=== PATIENT | male | born 2005 | race Caucasian/White ===

== ENCOUNTER 2024-02-27 19:02 | Emergency (ER) | payer OTHER, SELFPAY ==
[2024-02-27 19:15] VITALS: BP 149/80; PULSE 60; RESP 18; TEMP 36.1; O2SAT 100; BMI 21.0
[2024-02-27] MEDS: 0.9 % SODIUM CHLORIDE 1000 ml 1,000 ML IV (19:51)
[2024-02-27] MEDS: ONDANSETRON 2 MG/ML inj 4 MG IVP (19:52)
--- NOTE | 2024-02-27 20:00 | ED_ITS ---
HPI - General Adult General Date Seen: 02/27/24 Chief complaint: Fever Stated complaint: Fever, headache, nausea Time Seen by Provider: 02/27/24 19:57 Source: patient Mode of arrival: ambulatory Limitations: no limitations History of Present Illness HPI narrative: Patient is a 18-year-old here with his girlfriend for evaluation of headache, chills and vomiting. He says he works nights, he had gotten up around noon and noted a headache which he says was initially severe although it has improved since then. He took some Tylenol, but says he then started vomiting and has vomited several times. He developed shaking chills and broke out in a sweat according to his girlfriend. He thought he probably had a fever although he did not check his temperature at home. He denies sore throat, rash, abdominal pain or cough. No ill contacts. He has not had diarrhea. He denies underlying medical history, takes no medications. He does smoke pot, denies significant alcohol use and denies any other substance use. Related Data Home Medications ?Medication ?Instructions ?Recorded ?Confirmed No Known Home Medications 02/27/24 02/27/24 Allergies Allergy/AdvReac Type Severity Reaction Status Date / Time No Known Drug Allergies Allergy Verified 02/27/24 19:18 Review of Systems Status of ROS: Reports: 10 or more systems reviewed and unremarkable except as noted in History and below [facility] Social History Smoking Status: Never smoker Do you use any of these nicotine containing products: Other Second hand tobacco smoke exposure: No How often do you have a drink containing alcohol: monthly or less How many standard drinks containing alcohol do you have on a typical day: 1 or 2 How often do you have six or more drinks on one occasion: Never AUDIT-C Alcohol total score: 1 Non-prescribed substance use: marijuana (any form) service: No Exam Narrative: Exam Narrative: Vital signs as noted above. In general, an alert, well-appearing patient. Head: Normocephalic, atraumatic. Eyes: Pupils are equal reactive. Extraocular movements are full. Conjunctivae are normal. ENT: Mucous membranes are moist. Throat is normal. TMs occluded by cerumen bilaterally. Neck: Supple, no meningeal signs. Small anterior cervical lymph nodes are noted. Heart: Regular rate and rhythm. No murmur or rub. Lungs: Clear bilaterally. No increased work of breathing, crackles or wheezes. Abdomen: Soft and nontender. No organomegaly. Extremities: Well perfused. No edema. No calf tenderness. Pulses intact. Neurologic: Patient is alert and oriented to person and place. Speech is fluent. Face is symmetric. Moves all extremities equally. Affect: Normal. Skin: Warm and dry. Well perfused. Const: Vital Signs, click to edit/add: Vital Signs - 24 hr 02/27/24 19:15 02/27/24 20:51 02/27/24 21:59 Temperature 97.0 F L 98.4 F 98.2 F Pulse Rate [Pulse Oximeter] 60 66 62 Respiratory Rate 18 16 18 Blood Pressure [Ri t Upper Arm] 149/80 H 143/84 H 128/68 Pulse Oximetry 100 99 Oxygen Delivery Me thod Room Air Room Air Documenting provider has reviewed patient's vital signs: yes Course Course ED Course: Nurse reported that he was shaking and chilled on his arrival although when I spoke with him he looked more comfortable. He had IV fluids running at that time. He says the headache is feeling better. He has had some Zofran and nausea is improved as well. Viral swab and blood work pending. Overall, symptoms seem most likely likely to be viral in nature, would doubt intracranial infection such as meningitis or encephalitis given absence of fever or meningeal signs, benign appearance, and improvement of headache, likewise doubt intracranial hemorrhage. Plan would be to see how labs look, see how he is feeling over time. If he seems to be deteriorating or if labs are concerning, would consider further evaluation particularly viral testing is negative. Labs are notable for a white blood cell count which is somewhat elevated at 16,000 thousand, CRP is less than 0.5 in metabolic panel is normal. Viral swab is negative. Am signing this patient out to Dr. Meadows, will complete fluids, reassess clinically. If he continues to feel well, I think it is reasonable to send him home with symptomatic control, Zofran. If his presentation is becoming more concerning, additional workup may be indicated. Vital Signs Vital signs: Initial Vital Signs Temperature 97.0 F L 02/27/24 19:15 Temperature Source Oral 02/27/24 19:15 Pulse Rate 60 02/27/24 19:15 Pulse Rhythm Regular 02/27/24 19:15 Respiratory Rate 18 02/27/24 19:15 Blood Pressure 149/80 H 02/27/24 19:15 Blood Pressure Mean 103 02/27/24 19:15 Blood Pressure Position Sitting 02/27/24 19:15 Pulse Oximetry 100 02/27/24 19:15 Oxygen Delivery Method Room Air 02/27/24 19:15 Vital Signs Temperature 97.0 F L 02/27/24 19:15 Pulse Rate 60 02/27/24 19:15 Respiratory Rate 18 02/27/24 19:15 Blood Pressure 149/80 H 02/27/24 19:15 Pulse Oximetry 100 02/27/24 19:15 Oxygen Delivery Method Room Air 02/27/24 19:15 Temperature 98.2 F 02/27/24 21:59 Pulse Rate 62 02/27/24 21:59 Respiratory Rate 18 02/27/24 21:59 Blood Pressure 128/68 02/27/24 21:59 Pulse Oximetry 99 02/27/24 20:51 Oxygen Delivery Method Room Air 02/27/24 20:51 Medications Administered Medications: Discontinued Medications Generic Name Dose Route Start Last Admin Trade Name Freq PRN Reason Stop Dose Admin Sodium Chloride 1,000 mls @ 1,000 mls/hr 02/27/24 20:00 02/27/24 20:53 0.9 % Sodium Chloride 1000 Ml IV 02/27/24 20:59 Infused .Q1H TINA Infusion Ondansetron HCl 4 mg 02/27/24 19:50 02/27/24 19:52 Ondansetron 2 Mg/Ml Inj IVP 02/27/24 19:51 4 mg ONCE ONE Administration Medical Decision Making Lab Data Labs: Lab Results 02/27/24 02/27/24 Range/Units 19:15 19:46 WBC 15.98 H (4.50-11.00) K/uL RBC 4.98 (4.30-5.90) m/uL Hgb 15.0 (13.5-17.5) gm/dL Hct 42.6 (37.0-53.0) % MCV 86 (80-100) fL MCH 30 (26-34) pg MCHC 35 (32-36) gm/dL RDW Coeff of Chantal 11.8 (11.5-15.5) % Plt Count 269 (140-440) K/uL Neut % (Auto) 75.3 H (42.0-72.0) % Lymph % (Auto) 18.9 L (20-44) % [place] % (Auto) 4.6 (0.0-11.0) % Eos % (Auto) 0.6 (0.0-7.0) % Baso % (Auto) 0.3 (0.0-3.0) % Neut # (Auto) 12.00 H (1.7-7.0) K/uL Lymph # (Auto) 3.00 H (0.90-2.90) K/uL [place] # (Auto) 0.70 (0.00-0.90) K/UL Eos # (Auto) 0.10 (0.00-0.50) K/uL Baso # (Auto) 0.00 (0.00-0.30) K/uL Abs Immat Gran (auto) 0.00 (0.00-0.30) K/uL Imm/Tot Granulo (auto) 0.3 % Sodium 140 (135-149) mmol/L Potassium 3.7 (3.6-5.1) mmol/L Chloride 106 (96-114) mmol/L Carbon Dioxide 26 (20-32) mmol/L Anion Gap 8 (7-15) mEq/L BUN 10 (5-24) mg/dL Creatinine 0.8 (0.6-1.2) mg/dL Estimated Creat Clear 147.69 Estimated GFR 131 ml/min Glucose 136 H (60-115) mg/dL Calcium 9.6 (8.7-10.8) mg/dL C-Reactive Protein < 0.5 L (0.5-1.0) mg/dL SARS-CoV-2 (PCR) Negative SARS-CoV-2 (Negative) Influenza Type A (PCR) Negative PCR FLU A (Negative) Influenza Type B (PCR) Negative PCR FLU B (Negative) RSV (PCR) Negative PCR RSV (Negative) Discharge Plan Discharge Clinical Impression: Viral infection Patient Disposition: Home, Self-Care Condition: Improved Instructions: Viral Syndrome (ED) Additional Instructions: Ibuprofen and/or Tylenol as needed for headache. Zofran if needed for nausea. Return at any time for high fevers, severe uncontrolled pain, vomiting, unusual rashes, or other worsening. Prescriptions: No Action No Known Home Medications Follow Up/Referrals: Cara Wilde MD [Staff Physician] - Stand Alone Forms: [employer] Info Instructions
--- OUTSIDE RECORDS SUMMARY | 2024-02-27 20:10 | XMS_ITS | Clinical Summary ---
Author Organization [facility] Address [place], [place] [address] Care Team Providers Care Latcher Name Role Phone Pcp, No Primary Care Provider Unavailabl e Allergies No known active allergies Medications No known medications Active Problems No known active problems Immunizations Name Administration Dates Next Due AMB Influenza, IIV3 (Age >=3 years)(Flu Clinic Only) 04/26/2008 DTaP 05/01/2006 [id number] (Pediarix) 05/01/2005,02/28/2005,0 2004 DTaP-IPV (Kinrix) 02/15/2010 HIB PRP-OMP (PedvaxHIB) 05/01/2006,02/28/2005, HPV 9 (Gardasil 9) 10/15/2020,02/19/2017 Hepatitis A (Peds) 08/25/2007,11/18/2005 Influenza A (H1N1), Inactivated 06/27/2009 Influenza A (H1N1), Inactiva magdalena (Age >=3 Years) 06/27/2009 Influenza, IIV3 (Age 6-35 mos) 06/27/2009,2007,05/01/2006 Influenza, IIV3 (Age >=3 years) 06/27/19 10,02/20/2009,08/17/2007,05/01,05/01/2005 Influenza, IIV4 (=>6mos) MDV 06/01/2019,04/15/20 18,02/19/2017 Influenza,LAIV4 Live Intrana rambo (Flumist) 05/29/2015 MENINGOCOCCAL VACCINE 2 VIAL [id number] (MENVEO) 02/19/2017 MMR 02/15/2010,11/18/2005 Pneumococcal conj 7-Valent (Prevnar 7) 1 07/01/2005,05/01/2005,02/28/2005,12/27 Tdap 02/19/2017 Varicella Vaccine 02/15/2010,11/18/2005 Family History Medical History Relation Name Comments Diabetes Paternal Grandmother Asthma No Family History Cancer-colon No Family History Heart Disease No Family History Hyperlipidemia No Family History Hypertension No Family History Relation Name Status Comments Paternal Grandmother Social History Tobacco Use Types Packs/Day Years Used Date Smoking Tobacco: Former Cigarettes Smokeless Tobacco: Never Tobacco Cessation:Counseling Given: No Alcohol Use Standard Drinks/Week Comments Yes 1 (1 standard drink = 0.6 oz pur e alcohol) Occ PHQ-2 Answer Date Recorded PHQ-2 TOTAL SCORE 1 10/15/2020 Social Connections Answer Date Recorded Frequency of Communication with Friends and Fami ly 0 07/08/2023 Financial Resource Strain Answer Date R ecorded Difficulty of Paying Living Expenses 3 07/08/2023 Difficulty of Paying Living Expenses Not on file 07/08/2023 Food Insecurity Answer Date Recorded Worried About Running Out of Food in the Last Ye ar 1 07/08/2023 Transportation Needs Answer Date Record ed Lack of Transportation (Medical) 1 07/08/2023 Housing Stability Answer Date Recorded Unable to Pay for Housing in the Last Year 1 07/08/2023 Sex and Gender Information Value Date Recorded Sex Assigned at Not on file Gender Identity Not on file Sexual Orientation Not on file Obstetrics History Last Filed Vital Signs Vital Sign Reading Time Taken Comments Blood Pressure 130/80 07/08/2023 10:25 AM MULTIPLE SCLEROSIS NURSE Pulse 74 07/08/2023 10:25 AM MULTIPLE SCLEROSIS NURSE Temperature 36.8 ??C (98.3 ??F) 11/20/2015 1:44 PM CD T Respiratory Rate - - Oxygen Saturation 97% 07/08/2023 10: 25 AM MULTIPLE SCLEROSIS NURSE Inhaled Oxygen Concentration - - Weight 75.5 kg (166 lb 6.4 oz) 07/08/19 10:25 AM MULTIPLE SCLEROSIS NURSE Height 183.9 cm (6' 0.4) 11/20/2022 3:46 PM CDT Head Circumference 52.1 cm 08/25/2007 1:46 PM CDT Head Circumference Percentile 95.25% 08/25/2007 1:46 PM CDT Growth Chart: [facility] (Boys, 0-3 6 Months) Body Mass Index - - Plan of Treatment Health Maintenance Due Date Last Done Comments HIV for age 15-65 10/24/2019 Depression screening for age 12+ 10/15/2021 10/15/2020 Well Child Check for age 3-20 10/15/2021 10/15/2020, 07/12/2010, 02/20/2009, Additional history exists Hepatitis C screening for age 18-79 2022 BMI (ht and wt on same day) for age 18+ 11/21/2023 11/20/2022 COVID-19 vaccine series (2022- season) 2024 Influenza for age 9-49 02/14/2024 9, 04/15/2018, 02/19/2017, Additional history exists Tetanus booster 02/19/2027 02/19/2017 Pneumococcal series for age 6-64 Aged Out 05/01/2006, 05/01/2005, 02/28/2005, Additional history exists No longer eligible based on patient's age to complete this topic Meningococcal series for age 11-21 Aged Out 02/19/2017 No longer eligible based on patient's age to complete this topic Tdap Completed 02/19/2017 HPV series for age 9-26 Completed 10/15/2020, 02/19 Care Teams Latcher Relationship Specialty Start Date End Date Pcp, No . PCP - General 09/08/22
[2024-02-27 20:19] LABS: Basophils Percent Auto 0.3 % (0.0-3.0); Eosinophils Percent Auto 0.6 % (0.0-7.0); Hematocrit 42.6 % (37.0-53.0); Immature Granulocytes Pct Auto 0.3 %; Lymphocytes Percent Auto 18.9 % (20-44); Mean Corpuscular HGB Conc 35 gm/dL (32-36); Mean Corpuscular Hemoglobin 30 pg (26-34); Mean Corpuscular Volume 86 fL (80-100); Monocytes Percent Auto 4.6 % (0.0-11.0); Neutrophils Percent Auto 75.3 % (42.0-72.0); Platelet Count* 269 K/uL (140-440); RDW Coefficient of Variation % 11.8 % (11.5-15.5); Red Blood Count 4.98 m/uL (4.30-5.90); White Blood Count* 15.98 K/uL (4.50-11.00)
[2024-02-27 20:22] LABS: Chloride* 106 mmol/L (96-114); Potassium* 3.7 mmol/L (3.6-5.1); Sodium* 140 mmol/L (135-149)
[2024-02-27 20:23] LABS: Slide Review Reflex No
[2024-02-27 20:25] LABS: Anion Gap 8 mEq/L (7-15); Blood Urea Nitrogen* 10 mg/dL (5-24); Carbon Dioxide* 26 mmol/L (20-32); Creatinine* 0.8 mg/dL (0.6-1.2); Est. Creatinine Clearance* 147.69; Estimated Glomerular Filt Rate 131 ml/min
[2024-02-27 20:26] LABS: Calcium* 9.6 mg/dL (8.7-10.8); Glucose* 136 mg/dL (60-115)
[2024-02-27 20:32] LABS: C Reactive Protein* < 0.5 mg/dL (0.5-1.0)
[2024-02-27 20:33] LABS: PCR FLU A Negative PCR FLU A (Negative); PCR FLU B Negative PCR FLU B (Negative); PCR RSV Negative PCR RSV (Negative); SARS PCR* Negative SARS-CoV-2 (Negative)
[2024-02-27 20:51] VITALS: BP 143/84; PULSE 66; RESP 16; TEMP 36.9; O2SAT 99
--- NOTE | 2024-02-27 20:52 | PC.NURSE ---
Pt states he is feeling much better, states he does still have a headache in the back of head that's where I always get my headaches. Denies pain with tucking chin to neck. Has not vomited since zofran admin.
[2024-02-27 21:59] VITALS: BP 128/68; PULSE 62; RESP 18; TEMP 36.8
== END 2024-02-27 22:00 | disposition home or self-care (01) ==
PROVIDERS: Emergency Provider Emergency Medicine
DX: B34.9 Viral infection, unspecified (principal)
CPT/HCPCS: 36415; 80048; 85025; 86140; 87631; 96361; 96374; 99284; J2405; J7030